=== PATIENT | female | born 1935 | race Caucasian/White ===

== ENCOUNTER → 2016-06-28 | Outpatient (CLI) | payer OTHER ==
--- NOTE | 2016-06-28 15:00 | MA ---
Screening Digital Mammogram Clinical Indications: Routine screening. Technique: Standard cephalocaudal and mediolateral oblique projections are obtained. An additional C C view is performed of each breast. This examination is processed by the [employer] computer aided detectio n system. Comparison: June 2015, May 2014, April 2013 and February 2012 Breast density: B; There are scattered fibroglandular densities. There is atherosclerotic vascular ca lcification present. A loop recorder is present in the left breast. Findings: CAD was reviewed. No suspicious findings are identified. Impression: Negative mammogram. . BI-RADS 1. Recommendation: Routine screening is recommended in one year. [facility] will send a result letter to the patient. Negative mammography should not preclude additional workup of a clinically suspicious finding. The patient's information is entered into a reminder system with a target due date for her next mammo gram.
== END ==
LOC: CIMAGING 08:06
DX: Z12.31 Encounter for screening mammogram for malignant neoplasm of breast (principal)
CPT/HCPCS: G0202

== ENCOUNTER 2016-09-15 07:43 | Emergency (ER) | payer OTHER ==
[2016-09-15 07:51] VITALS: TEMP 97.7; O2SAT 94
[2016-09-15 08:12] LABS: % IMMATURE GRANULYOCYTES 0.3 % (0.0-1.1); ABSOLUTE IMMATURE GRANULOCYTES 0.03 10^3/uL (0.00-0.10); ADD DIFF? NO; ADD MORPH? NO; ADD SCAN? NO; ATYPICAL LYMPHOCYTE FLAG 0 (0-99); FRAGMENT RBC FLAG 0 (0-99); HEMATOCRIT 46.2 % (38.0-47.0); HEMOGLOBIN 15.5 g/dL (12.6-16.3); LEFT SHIFT FLG 0 (0-99); LIPEMIA HEMOLYSIS FLAG 80 (0-99); MEAN CELL HEMOGLOBIN 30.7 pg (27.9-34.1); MEAN CELL HEMOGLOBIN CONCENTR. 33.5 g/dL (32.4-36.7); MEAN CELL VOLUME 91.5 fL (81.5-99.8); PLATELET CLUMPS FLAG 0 (0-99); PLATELET COUNT 340 10^3/uL (150-400); RED BLOOD CELL COUNT 5.05 10^6/uL (4.18-5.33); RED CELL DISTRIBUTION WIDTH 14.3 % (11.5-15.2)
[2016-09-15] MEDS ORDERED: NS 500 ML IV ONE (08:27)
--- NOTE | 2016-09-15 08:28 | EDPHY ---
H & P Stated Complaint: N/V/D abdominal pain starting last night, reports black vomit Time Seen by Provider: 09/15/16 08:10 HPI/ROS: CHIEF COMPLAINT: Vomiting and diarrhea HISTORY OF PRESENT ILLNESS: This is an 80-year-old female with history of paroxysmal atrial fibrillation who is on metoprolol for rate control and Xarelto for anticoagulation. In addition, she has a history of dementia with poor short-term memory. History was obtained primarily from the patient's . Tells me that around 6:00 p.m. yesterday (14 hours ago) she complained of lower abdominal pain. At 1:00 a.m. this morning she vomited. He describes the vomitus as dark but is not sure whether looked like coffee grounds or not. At that time she had a normal bowel movement. At 3:00 a.m. she had a bout of vomiting and diarrhea and a 2nd bout of vomiting and diarrhea at 6:30 a.m.. Today she tells me that she feels tired but otherwise fine. She denies abdominal pain at present. She is not currently feeling lightheaded but states that she often feels slightly dizzy and lightheaded. She was admitted to this hospital in March of 2016 after an episode of syncope. She has not had syncope since. She denies chest pain or shortness of breath today. She does not have any urinary symptoms. She has not recently been ill. REVIEW OF SYSTEMS: A ten point review of systems was performed and is negative with the exception of the items mentioned in the HPI. Source: Family, Old records - Personal History Current Tetanus/Diphtheria Vaccine: Yes Current Tetanus Diphtheria and Acellular Pertussis (TDAP): Yes Tetanus Vaccine Date: < 10 years - Medical/Surgical History Hx Asthma: No Hx Chronic Respiratory Disease: No Hx Diabetes: No Hx Cardiac Disease: Yes Hx Renal Disease: No Hx Cirrhosis: No Hx Alcoholism: No Hx HIV/AIDS: No Hx Splenectomy or Spleen Trauma: No Other PMH: 1. Paroxysmal atrial fibrillation on Xarelto. 2. Dementia. 3. Hypertension. 4. Dyslipidemia. 5. Chronic tension-type headache. 6. History of TIA. 7. Recurrent urinary tract infections. 8. Osteopenia. 9. Back surgery. 10. Bladder surgery in. 11. Hysterectomy - Social History Smoking Status: Never smoked Additional Social History: She lives with her of 33 years. They live in their own home. She has never used tobacco products. She drinks alcohol on rare occasions, such as holidays. She formally worked in a bank. - Physical Exam Exam: General Appearance: Alert. Vital signs reviewed. Blood pressure 147/80, heart rate 83 oxygen saturation 94% on room air. Eyes: Pupils equal and round, no conjunctival injection, no discharge. Anicteric. ENT, Mouth: Mucous membranes are dry, no oropharyngeal erythema or edema. Neck: No lymphadenopathy, supple. Respiratory: Lungs are clear to auscultation; no wheezes, rales, or rhonchi. Cardiovascular: Regular rate and rhythm; no murmur, rub, or gallop. Gastrointestinal: Mild tenderness in the right lower quadrant without guarding , no masses or organomegaly, bowel sounds normal. Rectal: Nontender. No obvious blood on the examining glove. Skin: Warm and dry, no rashes on exposed skin, normal color. Back: Nontender to palpation over the thoracolumbar spine. No CVAT. Extremities: No lower extremity edema, no calf tenderness or swelling. Neurological: Alert and oriented. Moving all four extremities easily and equally. Psychiatric: Normal affect. Constitutional: Initial Vital Signs Temperature (C) 36.5 C 09/15/16 07:48 Heart Rate 83 09/15/16 07:48 Respiratory Rate 18 09/15/16 07:48 Blood Pressure 147/80 H 09/15/16 07:48 O2 Sat (%) 94 09/15/16 07:48 O2 Delivery Mode Room Air Allergies/Adverse Reactions: atorvastatin calcium [From Lipitor] Allergy (Severe, Verified 05/17/16 18:04) Other-Enter Comments simvastatin Allergy (Severe, Verified 05/17/16 18:04) Other-Enter Comments donepezil HCl [From Aricept] Allergy (Intermediate, Verified 05/17/16 18:04) Other-Enter Comments ezetimibe [From Zetia] Allergy (Intermediate, Verified 05/17/16 18:04) Other-Enter Comments memantine HCl [From Namenda] Allergy (Intermediate, Verified 05/17/16 18:04) Other-Enter Comments pregabalin [From Lyrica] Allergy (Intermediate, Verified 05/17/16 18:04) Other-Enter Comments propranolol Allergy (Intermediate, Verified 05/17/16 18:04) Hypotension scopolamine Allergy (Intermediate, Verified 05/17/16 18:04) Other-Enter Comments amoxicillin Allergy (Mild, Verified 05/17/16 18:04) Other-Enter Comments amitriptyline Allergy (Unknown, Verified 09/15/16 07:46) Unknown cephalexin monohydrate [From Keflex] Allergy (Unknown, Verified 09/15/16 07:46) Unknown clonidine Allergy (Unknown, Verified 09/15/16 07:46) Unknown hydrochlorothiazide [From Maxzide] Allergy (Unknown, Verified 09/15/16 07:46) Unknown hydrocodone [Hydrocodone] Allergy (Unknown, Verified 09/15/16 07:46) lidocaine [From Lidoderm] Allergy (Unknown, Verified 09/15/16 07:46) Unknown naproxen Allergy (Unknown, Verified 09/15/16 07:46) nifedipine Allergy (Unknown, Verified 09/15/16 07:46) Unknown nortriptyline Allergy (Unknown, Verified 09/15/16 07:46) Unknown propoxyphene napsylate [From Darvocet-N 100] Allergy (Unknown, Verified 07:46) Sulfa (Sulfonamide Antibiotics) Allergy (Unknown, Verified 09/15/16 07:46) tramadol HCl [From Ultram] Allergy (Unknown, Verified 09/15/16 07:46) Unknown triamterene [From Maxzide] Allergy (Unknown, Verified 09/15/16 07:46) Unknown codeine Allergy (Verified 09/15/16 07:46) Home Medications: Medication Instructions Recorded Herbals/Supplements -Info Only 1 ea PO DAILY 08/16/14 Lisinopril [Zestril 30 mg] 30 mg PO DAILY 08/16/14 Multivitamins [Multivitamin (*)] 1 each PO DAILY 08/16/14 Rivaroxaban [Xarelto 15mg (*)] 15 mg PO HS 08/16/14 Vitamin B Complex [B Complex] 1 each PO DAILY 08/16/14 Acetaminophen [Tylenol ES 500 mg 500 mg PO Q6 PRN 08/17/14 (*)] Calcium Carbonate [Oyster Shell 500 mg PO DAILY 08/17/14 Calcium 500 mg (*)] Cholecalciferol Vit D3 [Vitamin D3 2,000 units PO DAILY 03/25/16 (*)] Galantamine HBr [Razadyne ER] 16 mg PO DAILY #30 cap24h.pel 03/26/16 Metoprolol Tartrate [Lopressor 25 12.5 mg PO DAILY #0 tab 03/26/16 mg (*)] Nitrofurantoin Macrobid [Macrobid 100 mg PO BID #14 cap 05/17/16 100 mg (RX)] Medical Decision Making ED Course/Re-evaluation: 80-year-old female with history of small-bowel obstruction in the past who presents with vomiting and diarrhea over the past 15 hours. She reported abdominal pain earlier but now denies abdominal pain. She has some mild pain to palpation in the right lower quadrant. She is taking Pradaxa. Laboratory studies show normal hemoglobin and hematocrit. Stool Hemoccult is negative for blood. Blood pressure and heart rate are normal. She is not in atrial fibrillation at present. She was examined 3 times while in the emergency department. She received normal saline 500 mL IV. She was able to tolerate fluids. She did not have vomiting or diarrhea while in the department. Her final two abdominal exams were without tenderness. She has not had fever. This appears to be a gastroenteritis. There is no evidence of RUQ tenderness or cholecystitis. Appendicitis was considered, but without persistent RLQ pain I think it is unlikely. I do not suspect SBO. I reviewed with her the danger signs that should prompt her to be re- evaluated. He is comfortable returning home with her. If she has return of vomiting or abdominal pain he will bring her back for another evaluation. Differential Diagnosis: Considered a differential diagnosis that includes but is not limited to gastroenteritis, GI bleeding, small-bowel obstruction, appendicitis, urinary tract infection/pyelonephritis, and cholecystitis. - Data Points Laboratory Results: Laboratory Results 09/15/16 08:05 09/15/16 08:05 09/15/16 09/15/16 09/15/16 08:28 08:05 08:05 WBC 9.67 10^3/uL H 10^3/uL (3.80-9.50) RBC 5.05 10^6/uL 10^6/uL (4.18-5.33) Hgb 15.5 g/dL g/dL (12.6-16.3) Hct 46.2 % % (38.0-47.0) MCV 91.5 fL fL (81.5-99.8) MCH 30.7 pg pg (27.9-34.1) MCHC 33.5 g/dL g/dL (32.4-36.7) RDW 14.3 % % (11.5-15.2) Plt Count 340 10^3/uL 10^3/uL (150-400) MPV 9.0 fL fL (8.7-11.7) Neut % (Auto) 88.5 % H % (39.3-74.2) Lymph % (Auto) 6.9 % L % (15.0-45.0) Young % (Auto) 3.9 % L % (4.5-13.0) Eos % (Auto) 0.0 % L % (0.6-7.6) Baso % (Auto) 0.4 % % (0.3-1.7) Nucleat RBC Rel Count 0.0 % % (0.0-0.2) Absolute Neuts (auto) 8.55 10^3/uL H 10^3/uL (1.70-6.50) Absolute Lymphs (auto) 0.67 10^3/uL L 10^3/uL (1.00-3.00) Absolute Monos (auto) 0.38 10^3/uL 10^3/uL (0.30-0.80) Absolute Eos (auto) 0.00 10^3/uL L 10^3/uL (0.03-0.40) Absolute Basos (auto) 0.04 10^3/uL 10^3/uL (0.02-0.10) Absolute Nucleated RBC 0.00 10^3/uL 10^3/uL (0-0.01) Immature Gran % 0.3 % % (0.0-1.1) Immature Gran # 0.03 10^3/uL 10^3/uL (0.00-0.10) Sodium 142 mEq/L mEq/L (134-144) Potassium 4.4 mEq/L mEq/L (3.5-5.2) Chloride 101 mEq/L mEq/L (97-110) Carbon Dioxide 28 mEq/l mEq/l (22-31) Anion Gap 13 mEq/L mEq/L (8-16) BUN 22 mg/dL mg/dL (7-23) Creatinine 1.0 mg/dL mg/dL (0.6-1.0) Estimated GFR 53 Glucose 141 mg/dL H mg/dL (70-100) Calcium 11.0 mg/dL H mg/dL (8.5-10.4) Phosphorus 4.8 mg/dL H mg/dL (2.5-4.5) Stool Occult Bld Scrn NEGATIVE (NEGATIVE) Medications Given: Discontinued Medications Sodium Chloride (Ns) 500 mls @ 0 mls/hr IV ONCE ONE PRN Reason: Wide Open Stop: 09/15/16 08:28 Last Admin: 09/15/16 08:27 Dose: 500 mls Departure - Departure Disposition: Home, Routine, Self-Care Clinical Impression: Acute gastroenteritis Condition: Good Instructions: Gastroenteritis (ED) Additional Instructions: I do not think that you have a bowel obstruction today. If you have persistent vomiting and if you have abdominal pain you should return for another evaluation. Clear liquids this morning. Referrals: Trish Rich MD [Primary Care Provider] - As per Instructions
[2016-09-15 08:29] LABS: ANION GAP 13 mEq/L (8-16); CARBON DIOXIDE 28 mEq/l (22-31); CHLORIDE 101 mEq/L (97-110); GLOMERULAR FILTRATION RATE 53; GLUCOSE 141 mg/dL (70-100); POTASSIUM 4.4 mEq/L (3.5-5.2); SODIUM 142 mEq/L (134-144)
[2016-09-15 09:56] VITALS: BP 165/73; PULSE 60; RESP 16
== END 2016-09-15 09:56 | disposition home or self-care (01) ==
DX: K52.9 Noninfective gastroenteritis and colitis, unspecified (principal); I10 Essential (primary) hypertension; Z86.73 Personal history of transient ischemic attack (TIA), and cerebral infarction without residual deficits

== ENCOUNTER → 2017-01-27 | Outpatient (CLI) | payer OTHER | LOC: FIMAGING 11-27 10:22 | PROVIDERS: ATTEND Family Medicine | DX: Z13.820 Encounter for screening for osteoporosis (principal); Z78.0 Asymptomatic menopausal state; M81.0 Age-related osteoporosis without current pathological fracture ==

== ENCOUNTER 2017-06-13 16:09 | Emergency (ER) | payer OTHER ==
--- NOTE | 2017-06-13 16:31 | CPEKG ---
Heart Rate: 61 RR Interval: 984 P-R Interval: 236 QRSD Interval: 140 QT Interval: 440 QTC Interval: 444 P [place]: 33 QRS [place]: -58 T Wave [place]: 38 EKG Severity - ABNORMAL ECG - EKG Impression: SINUS RHYTHM EKG Impression: FIRST DEGREE AV BLOCK EKG Impression: RBBB AND LAFB EKG Impression: PROBABLE LEFT VENTRICULAR HYPERTROPHY Electronically Signed By: Christopher Lemos 13-Jun-2017 18:19:24
--- NOTE | 2017-06-13 16:33 | EDPHY ---
H & P Stated Complaint: ABNORMAL EKG Time Seen by Provider: 06/13/17 16:32 HPI/ROS: CHIEF COMPLAINT: Lightheadedness in the morning HISTORY OF PRESENT ILLNESS: The patient is referred to the emergency department from her primary care provider's office. She has experienced episodic lightheadedness in the morning for the past several mornings. She is currently asymptomatic. She had an EKG performed at the office which demonstrated a right bundle branch block. They did not have a prior EKG to compare to and she was referred to the ED for further evaluation. The patient denies any acute headache, numbness, weakness and fever, dysuria, abdominal pain , history of fall or trauma. She has been compliant with her regular medications for hypertension. She recently began taking ranitidine for presumed acid reflux. REVIEW OF SYSTEMS: A comprehensive 10 point review of systems is otherwise negative aside from elements mentioned in the history of present illness. Source: Patient - Personal History Current Tetanus/Diphtheria Vaccine: Yes Current Tetanus Diphtheria and Acellular Pertussis (TDAP): Yes Tetanus Vaccine Date: < 10 years - Medical/Surgical History Hx Asthma: No Hx Chronic Respiratory Disease: No Hx Diabetes: No Hx Cardiac Disease: Yes Hx Renal Disease: No Hx Cirrhosis: No Hx Alcoholism: No Hx HIV/AIDS: No Hx Splenectomy or Spleen Trauma: No Other PMH: 1. Paroxysmal atrial fibrillation on Xarelto. 2. Dementia. 3. Hypertension. 4. Dyslipidemia. 5. Chronic tension-type headache. 6. History of TIA. 7. Recurrent urinary tract infections. 8. Osteopenia. 9. Back surgery. 10. Bladder surgery in. 11. Hysterectomy - Social History Smoking Status: Never smoked - Physical Exam Exam: General Appearance: Alert, no distress Eyes: Pupils equal and round no pallor or injection ENT, Mouth: Mucous membranes moist Respiratory: There are no retractions, lungs are clear to auscultation Cardiovascular: Regular rate and rhythm Gastrointestinal: Abdomen is soft and nontender, no masses, bowel sounds normal Neurological: A&O, normal motor function, normal sensory exam, normal cranial nerves Skin: Warm and dry, no rashes Musculoskeletal: Neck is supple nontender Extremities: symmetrical, full range of motion Constitutional: Initial Vital Signs Temperature (C) 36.5 C 06/13/17 16:14 Heart Rate 70 06/13/17 16:14 Respiratory Rate 18 06/13/17 16:14 Blood Pressure 123/84 H 06/13/17 16:14 O2 Delivery Mode Room Air Allergies/Adverse Reactions: atorvastatin calcium [From Lipitor] Allergy (Severe, Verified 05/17/16 18:04) Other-Enter Comments simvastatin Allergy (Severe, Verified 05/17/16 18:04) Other-Enter Comments donepezil HCl [From Aricept] Allergy (Intermediate, Verified 05/17/16 18:04) Other-Enter Comments ezetimibe [From Zetia] Allergy (Intermediate, Verified 05/17/16 18:04) Other-Enter Comments memantine HCl [From Namenda] Allergy (Intermediate, Verified 05/17/16 18:04) Other-Enter Comments pregabalin [From Lyrica] Allergy (Intermediate, Verified 05/17/16 18:04) Other-Enter Comments propranolol Allergy (Intermediate, Verified 05/17/16 18:04) Hypotension scopolamine Allergy (Intermediate, Verified 05/17/16 18:04) Other-Enter Comments amoxicillin Allergy (Mild, Verified 05/17/16 18:04) Other-Enter Comments amitriptyline Allergy (Unknown, Verified 06/13/17 16:11) Unknown cephalexin monohydrate [From Keflex] Allergy (Unknown, Verified 06/13/17 16:11) Unknown clonidine Allergy (Unknown, Verified 06/13/17 16:11) Unknown hydrochlorothiazide [From Maxzide] Allergy (Unknown, Verified 06/13/17 16:11) Unknown hydrocodone [Hydrocodone] Allergy (Unknown, Verified 06/13/17 16:11) lidocaine [From Lidoderm] Allergy (Unknown, Verified 06/13/17 16:11) Unknown naproxen Allergy (Unknown, Verified 06/13/17 16:11) nifedipine Allergy (Unknown, Verified 06/13/17 16:11) Unknown nortriptyline Allergy (Unknown, Verified 06/13/17 16:11) Unknown propoxyphene napsylate [From Darvocet-N 100] Allergy (Unknown, Verified 16:11) Sulfa (Sulfonamide Antibiotics) Allergy (Unknown, Verified 06/13/17 16:11) tramadol HCl [From Ultram] Allergy (Unknown, Verified 06/13/17 16:11) Unknown triamterene [From Maxzide] Allergy (Unknown, Verified 06/13/17 16:11) Unknown codeine Allergy (Verified 06/13/17 16:11) Home Medications: Medication Instructions Recorded Herbals/Supplements -Info Only 1 ea PO DAILY 08/16/14 Lisinopril [Zestril 30 mg] 30 mg PO DAILY 08/16/14 Multivitamins [Multivitamin (*)] 1 each PO DAILY 08/16/14 Rivaroxaban [Xarelto 15mg (*)] 15 mg PO HS 08/16/14 Vitamin B Complex [B Complex] 1 each PO DAILY 08/16/14 Acetaminophen [Tylenol ES 500 mg 500 mg PO Q6 PRN 08/17/14 (*)] Calcium Carbonate [Oyster Shell 500 mg PO DAILY 08/17/14 Calcium 500 mg (*)] Cholecalciferol Vit D3 [Vitamin D3 2,000 units PO DAILY 03/25/16 (*)] Galantamine HBr [Razadyne ER] 16 mg PO DAILY #30 cap24h.pel 03/26/16 Metoprolol Tartrate [Lopressor 25 12.5 mg PO DAILY #0 tab 03/26/16 mg (*)] Nitrofurantoin Macrobid [Macrobid 100 mg PO BID #14 cap 05/17/16 100 mg (RX)] Medical Decision Making - Diagnostics EKG Interpretation: EKG: Complete interpretation has been separately recorded in the [employer] archive. Summary impression: Sinus rhythm, first-degree AV block, LVH, no acute ischemic changes. Unchanged from prior EKG. ED Course/Re-evaluation: I reviewed the patient's past medical records. She presents to the ED with a bifascicular block noted on her EKG which is unchanged from her prior EKG of 2017. The patient has had very mild symptoms of orthostasis in the morning over the past 2 days. She is asymptomatic in the emergency department. The patient's CBC and chemistry panel are within normal limits. The patient received a L of normal saline. I re-evaluated the patient all times while in the emergency department she remained with a stable neurologic examination. She was noted to be hypertensive. At this point time I do feel the patient can be discharged home and follow up as needed with primary care provider. She has been advised to follow up with Cardiology for any ongoing symptoms of presyncope. She should return to the ED for the development of true syncope, chest pain or shortness of breath. Differential Diagnosis: Differential diagnosis considered includes arrhythmia, anemia, dehydration, vasovagal episode, vertigo - Data Points Laboratory Results: Laboratory Results 06/13/17 17:14 06/13/17 14:37 06/13/17 06/13/17 17:14 14:37 WBC 6.37 10^3/uL 10^3/uL (3.80-9.50) RBC 4.76 10^6/uL 10^6/uL (4.18-5.33) Hgb 14.9 g/dL g/dL (12.6-16.3) Hct 44.3 % % (38.0-47.0) MCV 93.1 fL fL (81.5-99.8) MCH 31.3 pg pg (27.9-34.1) MCHC 33.6 g/dL g/dL (32.4-36.7) RDW 14.2 % % (11.5-15.2) Plt Count 367 10^3/uL 10^3/uL (150-400) MPV 9.5 fL fL (8.7-11.7) Neut % (Auto) 61.9 % % (39.3-74.2) Lymph % (Auto) 25.7 % % (15.0-45.0) Stokes % (Auto) 9.9 % % (4.5-13.0) Eos % (Auto) 1.6 % % (0.6-7.6) Baso % (Auto) 0.6 % % (0.3-1.7) Nucleat RBC Rel Count 0.0 % % (0.0-0.2) Absolute Neuts (auto) 3.94 10^3/uL 10^3/uL (1.70-6.50) Absolute Lymphs (auto) 1.64 10^3/uL 10^3/uL (1.00-3.00) Absolute Monos (auto) 0.63 10^3/uL 10^3/uL (0.30-0.80) Absolute Eos (auto) 0.10 10^3/uL 10^3/uL (0.03-0.40) Absolute Basos (auto) 0.04 10^3/uL 10^3/uL (0.02-0.10) Absolute Nucleated RBC 0.00 10^3/uL 10^3/uL (0-0.01) Immature Gran % 0.3 % % (0.0-1.1) Immature Gran # 0.02 10^3/uL 10^3/uL (0.00-0.10) Sodium 142 mEq/L mEq/L (134-144) Potassium 4.2 mEq/L mEq/L (3.5-5.2) Chloride 106 mEq/L mEq/L (97-110) Carbon Dioxide 21 mEq/l L mEq/l (22-31) Anion Gap 15 mEq/L mEq/L (8-16) BUN 17 mg/dL mg/dL (7-23) Creatinine 0.9 mg/dL mg/dL (0.6-1.0) Estimated GFR 60 Glucose 100 mg/dL mg/dL (70-100) Calcium 10.5 mg/dL H mg/dL (8.5-10.4) Departure - Departure Disposition: Home, Routine, Self-Care Clinical Impression: Vasovagal episode Condition: Good Instructions: Syncope (DC) Additional Instructions: 1. Your EKG and laboratory testing are within normal limits. 2. Please schedule a follow-up appointment with the burrito maker you have been referred to for any ongoing symptoms. 3. Please return to the ED for markedly worsening symptoms, chest pain, shortness of breath, numbness or weakness. Referrals: Trish Rich MD [Primary Care Provider] - As per Instructions Oliver Antoine MD [Medical Doctor] - As per Instructions
[2017-06-13 17:08] VITALS: RESP 16
[2017-06-13 17:24] LABS: PLATELET COUNT 367 10^3/uL (150-400)
[2017-06-13 19:03] VITALS: BP 180/78; PULSE 65; TEMP 98.6; O2SAT 95
== END 2017-06-13 19:03 | disposition home or self-care (01) ==
DX: R55 Syncope and collapse (principal); I10 Essential (primary) hypertension; Z79.01 Long term (current) use of anticoagulants

== ENCOUNTER 2017-07-03 09:16 | Inpatient (IN) | payer OTHER ==
[2017-07-03] MEDS ORDERED: BACITRACIN IRRIGATION/NS 50,000 UNITS/1,000 ML BTL IRR ONE (09:22)
[2017-07-03] MEDS ORDERED: DIAZEPAM 5 MG TAB PO ONE (09:22)
[2017-07-03] MEDS ORDERED: diphenhydrAMINE 25 MG CAP PO ONE (09:22)
[2017-07-03] MEDS ORDERED: NS 1,000 ML IV ONE (09:22)
--- NOTE | 2017-07-03 10:01 | CPEKG ---
Heart Rate: 50 RR Interval: 1200 P-R Interval: 204 QRSD Interval: 132 QT Interval: 460 QTC Interval: 420 P [place]: 64 QRS [place]: -60 T Wave [place]: 52 EKG Severity - ABNORMAL ECG - EKG Impression: SINUS RHYTHM EKG Impression: RBBB AND LAFB Electronically Signed By: Tobin Regalado 03-Jul-2017 15:23:16
[2017-07-03 10:23] LABS: PLATELET COUNT 280 10^3/uL (150-400)
--- NOTE | 2017-07-03 10:29 | PDPROPOC ---
Sedation Plan of Care Sedation Plan of Care: vital signs stable, mental status noted, patient educated of risks, benefits, alternatives, patient can tolerate sedation ASA Classification: ASA 1 Planned drugs: fentanyl, midazolam Mallampati Score: Class 2 Mallampati Reference Image: Patient passed 3-3-2 rule?: Yes
--- NOTE | 2017-07-03 10:29 | PDHPUP ---
History & Physical Update H&P update statement: This history and physical update is based on an assessment of the patient which was completed after admission or registration (within 24 hours), but prior to the surgery/procedure. H&P update: H&P reviewed & patient examined, no change in patient's condition since H&P completed
[2017-07-03] MEDS ORDERED: MIDAZOLAM 2 MG/2 ML VIAL ONE (10:30)
[2017-07-03] MEDS ORDERED: fentaNYL 100 MCG/2 ML INJ ONE ×2 (10:30→11:55)
[2017-07-03] MEDS ORDERED: BUPIVACAINE 0.5% 30 ML SDV ONE ×2 (10:30→11:12)
[2017-07-03] MEDS ORDERED: IOPAMIDOL (ISOVUE-300) 100 ML BTL ONE (10:31)
[2017-07-03 10:43] LABS: INR 0.96 (0.83-1.16)
[2017-07-03] MEDS ORDERED: ceFAZolin 2 GM/SWFI 2 GM/20 ML SYR IVP ONE (11:00)
[2017-07-03] MEDS ORDERED: hydrALAZINE 20 MG/ML VIAL ONE (12:46)
--- NOTE | 2017-07-03 13:55 | CPEKG ---
Heart Rate: 48 RR Interval: 1250 P-R Interval: 212 QRSD Interval: 120 QT Interval: 432 QTC Interval: 386 P [place]: 62 QRS [place]: -83 T Wave [place]: 66 EKG Severity - ABNORMAL ECG - EKG Impression: SINUS BRADYCARDIA EKG Impression: INCOMPLETE RBBB AND LAFB Electronically Signed By: Tobin Regalado 03-Jul-2017 15:22:59
--- NOTE | 2017-07-03 14:42 | SUROPNOTE ---
[facility] Operative Report - Surgery PROCEDURE: (1) PPM IMPLANT (2) LEFT SUBCLAVIAN VENOGRAM (3) LINQ EXPLANT INDICATION: (1) SEVEN SECOND PAUSE ON LINQ MONITOR PROCEDURE DETAILS: Patient was consented for both the explant of the LINQ and the implant of the PPM with 's signature given the degree of dementia. Patient was brought to the cardiac operations label clerk and prepped/draped in the usual sterile fashion for the first procedure (LINQ explant). This procedure was performed without difficulty or issues, and scrub was broken. The left subclavian venogram was performed with a large vessel identified. The patient was prepped and scrubbed a second time with surgical drape to the left subclavian regioni. One stick was performed with mild difficulty given the patient's body habitus and moderate movement. A pocket was then created, and the wire from access was pulled into the pocket. A raytech soaked in bacitracin was placed in the pocket, and the ventricular lead was placed Ventricular lead serial number: [id number] capture at 0.6V @ 0.4 ms, 0.8 mA. Sensing at 8.2 mV, 1.5 V/s, and impedance of 572 ohms This lead was sutured into position. Raytech was explanted and pacer was implanted, and sutured into position Model number: [id number] with serial number: [id number] No complications were appreciated. Chest x-ray is pending post procedure and tomorrow morning with interrogation also pending at that time.
[2017-07-03] MEDS ORDERED: ONDANSETRON 4 MG/2 ML VIAL ONE (14:51)
[2017-07-03] MEDS: ACETAMINOPHEN 500 MG TAB PO PRN ×2 (16:24→21:38)
[2017-07-03] MEDS: GALANTAMINE HBR 12 MG PO SCH (18:22)
[2017-07-03] MEDS: FAMOTIDINE 20 MG TAB PO SCH (20:20)
[2017-07-03] MEDS ORDERED: RIVAROXABAN 15 MG TAB PO SCH (21:00)
[2017-07-04 04:04] LABS: PLATELET COUNT 252 10^3/uL (150-400)
[2017-07-04] MEDS: GALANTAMINE HBR 12 MG PO SCH (08:48)
[2017-07-04] MEDS ORDERED: METOPROLOL TARTRATE 25 MG TAB PO SCH (09:00)
[2017-07-04] MEDS ORDERED: Herbals/Supplements -Info Only PO SCH (09:00)
--- NOTE | 2017-07-04 09:09 | CPEKG ---
Heart Rate: 66 RR Interval: 909 P-R Interval: 211 QRSD Interval: 136 QT Interval: 428 QTC Interval: 449 P [place]: 0 QRS [place]: -106 T Wave [place]: 57 EKG Severity - ABNORMAL ECG - EKG Impression: SINUS RHYTHM EKG Impression: RIGHT BUNDLE BRANCH BLOCK Electronically Signed By: Tobin Regalado 04-Jul-2017 12:37:25
--- NOTE | 2017-07-04 09:56 | ASMTCASEMG ---
Living Arrangements What is your living Answers: With Spouse arrangement? Who do you live with? Type Of Residence What kind of residence do Answers: House you live in? Discharge Plan Comments Coordination Status Comments Notes: CM spoke w/ [facility] regarding d/c POC. Pt is a 81 y/o female admitted for pauses. Pt will most likely d/c independent when medically stable w/ supportive . OT has been ordered. CM available for d/c needs. Plan: Independent Date Signed: 07/04/2017 09:55 AM Electronically Signed By:FAWN Hopkins
--- NOTE | 2017-07-04 10:29 | PDCONSULT ---
[employer] Supervisor Note: 81 y/o female s/p pacer placement yesterday. CXR today shows left hydropneumothorax and surgical consultation was requested by Libby Roldan PA-C Patient is in NAD, though requiring supplemental O2. She received Xarelto 15mg last PM PMH: reviewed Dr. Miller' office note A-fib, TIA allergies: numerous including cephalexin, sulfa non-smoker SH: here with /six children FH: non-contributory ROS: denies chest pain/mild dyspnea PE: T36.6 BP 163/77 HR 74 O2sat 94% 3 lpm slender female in NAD HEENT: no JVD, trachea midline Lungs: diminished left CVS: IRR/pacer left subclavian approach Abd: soft/non-tender CXR: 30% left pneumothorax/pleural effusion Imp: left hydropneumothorax Afib anticoagulation Rec: left closed tube thoracostomy we discussed the procedure and risks-particulary the risk of bleeding while taking Xarelto informed consent was obtained Cornel Tariq MD, FACS
[2017-07-04] MEDS ORDERED: LR 1,000 ML IV ONE (10:46)
[2017-07-04] MEDS ORDERED: LIDOCAINE 1% 300 MG/30 ML SDV ONE (11:05)
[2017-07-04] MEDS ORDERED: BACITRACIN ZINC 14.2 GM OINTTUBE TP ONE (11:05)
[2017-07-04] MEDS ORDERED: BUPIVACAINE 0.5% 30 ML SDV ONE (11:06)
[2017-07-04] MEDS ORDERED: CLINDAMYCIN 900 MG/DEXTROSE 50 ML IV ONE (11:07)
[2017-07-04] MEDS ORDERED: MIDAZOLAM 2 MG/2 ML VIAL IVP ONE (11:15)
--- NOTE | 2017-07-04 11:17 | PDANEPAE ---
ANE History of Present Illness 81 yo for chest tube ANE Past Medical History - Cardiovascular History Hx Hypertension: Yes Hx Arrhythmias: Yes - Pulmonary History Hx Oxygen in Use at Home: No Hx Sleep Apnea: No Sleep Apnea Screening Result - Last Documented: Negative - Endocrine History Hx Diabetes: No - Chronic Pain History Chronic Pain: Yes ANE Review of Systems Review of Systems: - Exercise capacity METS (RN): 3 METS - Pacemaker Pacemaker [employer]: [employer] [place] ANE Patient History - Allergies Allergies/Adverse Reactions: atorvastatin calcium [From Lipitor] Allergy (Severe, Verified 07/04/17 10:52) Other-Enter Comments simvastatin Allergy (Severe, Verified 07/04/17 10:52) Other-Enter Comments donepezil HCl [From Aricept] Allergy (Intermediate, Verified 07/04/17 10:52) Other-Enter Comments ezetimibe [From Zetia] Allergy (Intermediate, Verified 07/04/17 10:52) Other-Enter Comments memantine HCl [From Namenda] Allergy (Intermediate, Verified 07/04/17 10:52) Other-Enter Comments pregabalin [From Lyrica] Allergy (Intermediate, Verified 07/04/17 10:52) Other-Enter Comments propranolol Allergy (Intermediate, Verified 07/04/17 10:52) Hypotension scopolamine Allergy (Intermediate, Verified 07/04/17 10:52) Other-Enter Comments amoxicillin Allergy (Mild, Verified 07/04/17 10:52) Other-Enter Comments amitriptyline Allergy (Unknown, Verified 07/04/17 10:52) Unknown cephalexin monohydrate [From Keflex] Allergy (Unknown, Verified 07/04/17 10:52) Unknown clonidine Allergy (Unknown, Verified 07/04/17 10:52) Unknown hydrochlorothiazide [From Maxzide] Allergy (Unknown, Verified 07/04/17 10:52) Unknown hydrocodone [Hydrocodone] Allergy (Unknown, Verified 07/04/17 10:52) lidocaine [From Lidoderm] Allergy (Unknown, Verified 07/04/17 10:52) Unknown naproxen Allergy (Unknown, Verified 07/04/17 10:52) nifedipine Allergy (Unknown, Verified 07/04/17 10:52) Unknown nortriptyline Allergy (Unknown, Verified 07/04/17 10:52) Unknown propoxyphene napsylate [From Darvocet-N 100] Allergy (Unknown, Verified 10:52) Sulfa (Sulfonamide Antibiotics) Allergy (Unknown, Verified 07/04/17 10:52) tramadol HCl [From Ultram] Allergy (Unknown, Verified 07/04/17 10:52) Unknown triamterene [From Maxzide] Allergy (Unknown, Verified 07/04/17 10:52) Unknown codeine Allergy (Verified 07/04/17 10:52) - Home Medications Home Medications: Herbals/Supplements -Info Only 1 ea PO DAILY 08/16/14 [Last Taken 03/24/16] Lisinopril [Zestril 30 mg] 30 mg PO DAILY 08/16/14 [Last Taken 03/24/16] Multivitamins [Multivitamin (*)] 1 each PO DAILY 08/16/14 [Last Taken 03/24/16] Rivaroxaban [Xarelto 15mg (*)] 15 mg PO HS 08/16/14 [Last Taken 03/24/16] Vitamin B Complex [B Complex] 1 each PO DAILY 08/16/14 [Last Taken 03/24/16] Acetaminophen [Tylenol ES 500 mg (*)] 500 mg PO Q6 PRN 08/17/14 [Last Taken 09/05] Cholecalciferol Vit D3 [Vitamin D3 (*)] 2,000 units PO DAILY 03/25/16 [Last Taken 03/24/16] Ascorbic Acid [Vitamin C 500 mg (*)] 500 mg PO DAILY 07/01/17 [Last Taken Unknown] Metoprolol Tartrate [Lopressor 25 mg (*)] 25 mg PO DAILY 07/01/17 [Last Taken Unknown] Ranitidine HCl [Zantac] 150 mg PO BID 07/01/17 [Last Taken Unknown] Galantamine HBr [Galantamine ER] 16 mg PO DAILY 07/04/17 [Last Taken Unknown] - NPO status NPO Since - Liquids (Date): 07/04/17 NPO Since - Liquids (Time): 08:00 NPO Since - Solids (Date): 07/04/17 NPO Since - Solids (Time): 00:00 - Smoking Hx Smoking Status: Never smoked ANE Labs/Vital Signs - Labs Result Diagrams: 07/04/17 03:48 01/12/18 03:48 - Vital Signs Blood Pressure: 148/78 Heart Rate: 68 Respiratory Rate: 14 O2 Sat (%): 93 Height: 5 ft 4 in Weight: 49.895 kg ANE Physical Exam - Airway Mallampati Score: Class 2 Mouth exam: normal dental/mouth exam - Pulmonary Pulmonary: no respiratory distress - Cardiovascular Cardiovascular: regular rate and rhythym - ASA Status ASA Status: III ANE Anesthesia Plan Anesthesia Plan: MAC
[2017-07-04] MEDS ORDERED: PROPOFOL/EMULSION 500 MG/50 ML BOTTLE IV ONE (11:23)
[2017-07-04] MEDS ORDERED: fentaNYL 100 MCG/2 ML INJ ONE ×2 (11:37→12:20)
[2017-07-04] MEDS ORDERED: NALOXONE HCL 0.4 MG/ML INJ IVP PRN (11:48)
[2017-07-04] MEDS ORDERED: fentaNYL 100 MCG/2 ML INJ IVP PRN (11:48)
[2017-07-04] MEDS ORDERED: ONDANSETRON 4 MG/2 ML VIAL IVP PRN ×2 (11:48→18:08)
--- NOTE | 2017-07-04 12:07 | POSTANESTH ---
Post Anesthetic Evaluation Cardiovascular Status: Normal, Stable Respiratory Status: Similar to Pre-op Cond. Level of Consciousness/Mental Status: Can Participate in Eval Pain Control: Adequate, Prn Tx Ordered Nausea/Vomiting Control: Adequate, Prn Tx Ordered Complications Possibly Related to Anesthesia: None Noted
--- NOTE | 2017-07-04 12:25 | POSTOPPROG ---
Post Op Note Date of Operation: 07/04/17 Surgeon: Marcus Tariq (, FACS) Anesthesiologist: Boogie Grubbs MD Anesthesia: Other (Specify) (MAC) Pre-op Diagnosis: left pneumothorax Procedure: left closed tube thoracostomy Inf/Abcess present in the surg proc area at time of surgery?: No EBL: Minimal Drains: Other (chest tube)
[2017-07-04] MEDS ORDERED: ONDANSETRON 4 MG/2 ML VIAL ONE (13:29)
[2017-07-04] MEDS: LISINOPRIL 20 MG TAB PO SCH (14:45)
[2017-07-04] MEDS: ACETAMINOPHEN 500 MG TAB PO PRN ×2 (14:45→20:28)
[2017-07-04] MEDS: CHOLECALCIFEROL VIT D3 1,000 UNITS TAB PO SCH (14:45)
[2017-07-04] MEDS: MULTIVITAMINS 1 EACH TAB PO SCH (14:47)
[2017-07-04] MEDS: FAMOTIDINE 20 MG TAB PO SCH ×2 (14:49→20:29)
[2017-07-04] MEDS: ASCORBIC ACID 500 MG TAB PO SCH (14:51)
[2017-07-04] MEDS: VITAMIN B COMPLEX 1 EA CAP/TAB PO SCH (14:51)
[2017-07-04] MEDS: GALANTAMINE HBR 16 MG PO SCH (14:55)
--- NOTE | 2017-07-04 15:39 | PDCARPN ---
Cardiology Progress Note Chief Complaint: SSS s/p c/b ptx Assessment/Plan: Assessment: 81F PMH htn, mild carotid disease, previous TIA, PAF, dyslipidemia presented for pacer placement due to 7-second pause seen on Linq monitoring. Pacer insertion c/b ptx. #. ptx: s/p chest tube with Dr. Tariq #. ppm: device functioning appropriately #. htn: BP not well controlled will increase Metoprolol now #. back pain: h/o multiple back surgeries intolerant of multiple analgesics add K pad #. PAF: currently in SR holding Xarelto in setting of recent chest tube await Dr. Tariq' input on timing of restarting this #. DVT ppx: defer Enox #. LOS: >48 hours due to need for chest tube 07/04/17 15:31 Subjective: Comfortable unless she takes a deep breath. Having back pain. Reviewed/Discussed With: other (Dr. Tariq) Objective: Vital Signs (8 Hrs) Temp Pulse Resp BP Pulse Ox 07/04/17 14:28 98.3 F 66 18 170/85 H 95 07/04/17 13:04 97.9 F 07/04/17 12:00 97.7 F 07/04/17 11:17 68 14 148/78 H 93 07/04/17 10:48 98.8 F 68 14 148/78 H 93 07/04/17 10:21 97.9 F 74 18 163/77 H 3 L 07/04/17 07:47 97.8 F 74 18 163/77 H 94 Intake/Output (24 Hrs) 07/03/17 07/04/17 07/05/17 05:59 05:59 05:59 Intake Total 1560 450 Output Total 10 Balance 1560 440 Intake: Oral (ml) 960 100 IV Intake (ml) 600 350 Output: Chest Tube Output (ml) 10 24 Fr Left 10 Estimated Blood Loss (ml) 0 Other: Weight 49.895 kg 49.895 kg Number of Voids Toilet 3 Result Diagrams: 07/04/17 03:48 07/04/17 03:48 Telemetry: SR - Physical Exam Constitutional: no apparent distress Ears, Nose, Mouth, Throat: moist mucous membranes Cardiovascular: regular rate and rhythm Respiratory: reduced air movement Gastrointestinal: normoactive bowel sounds Skin: no rashes, no abrasions Musculoskeletal: no muscular tenderness Psychiatric: cooperative, interactive ICD10 Worksheet Patient Problems: Problems Problem Status Onset SBO (small bowel obstruction) Acute Cystitis Acute Syncope Acute
[2017-07-04] MEDS ORDERED: METOPROLOL TARTRATE 25 MG TAB PO ONE (18:00)
--- NOTE | 2017-07-04 19:54 | GOP ---
[f rep st] OPERATIVE REPORT DATE OF OPERATION: 07/04/2017 SURGEON: Marcus Tariq MD, FACS ANESTHESIA: Monitored anesthesia care. ANESTHESIOLOGIST: Greer Wasihngton MD. PREOPERATIVE DIAGNOSIS: Left hydropneumothorax. POSTOPERATIVE DIAGNOSIS: Left hydropneumothorax. PROCEDURE PERFORMED: Placement of left closed tube thoracostomy. FINDINGS: ESTIMATED BLOOD LOSS: Negligible. INDICATIONS: Patient is an 81-year-old female, who is approximately 16 hours status post placement of a left subclavian single-lumen pacemaker lead and generator. Postoperative chest x-ray appeared unremarkable. Repeat chest x- ray this morning showed a left hydropneumothorax, approximately 30%. Patient had mild respiratory compromise and was on Xarelto (anti Xa inhibitor), and had a history of mild dementia. I elected to bring the patient to the operating room for monitored anesthesia care to provide a safe environment for this procedure. DESCRIPTION OF PROCEDURE: Left chest was prepped and draped in usual fashion. Patient received moderate sedation, but did not require assisted ventilation. Before proceeding, a time-out and identification were performed. A sterile environment was created with appropriate draping. 1% lidocaine and 0.25% Marcaine were used to establish an intercostal block between the 4th and 5th intercostal segments. A small incision was made, and the chest was entered bluntly with a Pean clamp, and a buckley of air returned. A 24-[place] chest tube was introduced and advanced towards the apex without resistance. This was secured to the skin with interrupted 2-0 nylon suture. The chest tube was placed to Pleur-Evac suction. No air leak was noted. Sterile dressings were applied, and the patient was returned to the recovery room in satisfactory condition. Needle, sponge, and instrument count were correct. COMPLICATIONS: None. /[id number]/MODL MTDD
[2017-07-04] MEDS: METOPROLOL TARTRATE 25 MG TAB PO SCH (20:29)
[2017-07-05] MEDS: ACETAMINOPHEN 500 MG TAB PO PRN ×3 (01:54→18:19)
[2017-07-05] MEDS: GALANTAMINE HBR 16 MG PO SCH (09:41)
[2017-07-05] MEDS: MULTIVITAMINS 1 EACH TAB PO SCH (09:43)
[2017-07-05] MEDS: FAMOTIDINE 20 MG TAB PO SCH ×2 (09:43→20:28)
[2017-07-05] MEDS: VITAMIN B COMPLEX 1 EA CAP/TAB PO SCH (09:44)
[2017-07-05] MEDS: CHOLECALCIFEROL VIT D3 1,000 UNITS TAB PO SCH (09:44)
[2017-07-05] MEDS: ASCORBIC ACID 500 MG TAB PO SCH (09:44)
[2017-07-05] MEDS: METOPROLOL TARTRATE 25 MG TAB PO SCH ×2 (09:45→20:28)
[2017-07-05] MEDS: LISINOPRIL 20 MG TAB PO SCH (09:48)
[2017-07-05] MEDS ORDERED: LISINOPRIL 10 MG TAB PO ONE (10:00)
--- NOTE | 2017-07-05 11:10 | PDCARPN ---
Cardiology Progress Note Chief Complaint: Patient reports left-sided pain with deep breath, and with significant movement Assessment/Plan: Assessment: 81-year-old female with past history that includes severe dementia, hypertension , mild carotid artery disease, previous TIA , paroxysmal atrial fibrillation, dyslipidemia. Recently found to have 7 second pauses by Linq monitor. Underwent PPM implantation (Biotronik single RV lead VVI) and loop recorder explant by Dr. Miller on 07/03/2017. Device check on 07/04/2017 showing functioning within normal limits. Chest x-ray done on 07/04/2017 showed moderate size , left pneumothorax. Dr. Tariq (surgery) to patient to OR later that afternoon and placed left-sided chest tube for lung reexpansion. Today, patient remains at her normal mentation baseline. Reports no shortness of breath. Does reports some mild pain with movement at chest tube insertion site. Pacer and Linq removal sites without redness, swelling, or drainage. Patient's blood pressure noted to be elevated, with systolics up to 176 last evening. Patient's chest tube drainage is 230 mL. Repeated chest x-ray today showing improvement with left lower lobe atelectasis, tiny left apical pneumothorax but stable. Patient maintaining SpO2 greater 90% , in no acute respiratory distress. Telemetry monitoring noticing patient has maintained sinus rhythm with occasional ventricular paced beats. Lungs are diminished in bases left greater than right. Plan: 1. Sinus arrest: Previous Linq monitor showing 7 second pauses. Status post ppm, recent device check shows functioning within normal limits. Once discharge , patient has device check and wound check set up later this week. 2. Pneumothorax: Found status post ppm implantation. Chest tube in place, chest x-ray today showing improvement. Defer to Dr. Tariq. Repeat CBC in a.m.. Repeat chest x-ray in am. IS. 3. Paroxysmal atrial fibrillation: None noted overnight. Patient resumed on metoprolol. Xarelto on hold until cleared by surgery to restart. 4. Hypertension: Restarted on metoprolol yesterday and continued on home dose lisinopril. Elevated last evening. Will increase lisinopril to 40 mg p.o. q.day. Repeat BMP in a.m. 5. Dementia: Per patient at baseline. 6. DVT prophylaxis: Anticoagulation held due to recent chest tube placement and ppm implantation. Ordered Jacinto sandoval, and SCDs while in bed. Patient will plan to be in hospital for greater than 48 hours. 07/05/17 11:06 Subjective: Patient reports no orthopnea, shortness of breath, lightheadedness, chest pressure or symptoms suggesting of ischemia, lightheadedness. Reviewed/Discussed With: family (), other (Dr. Ji) Objective: Vital Signs (8 Hrs) Temp Pulse Resp BP Pulse Ox 07/05/17 09:48 154/64 H 07/05/17 09:45 58 L 154/64 H 07/05/17 07:48 36.9 C 66 14 148/61 H 92 07/05/17 06:19 44 L 15 94 07/05/17 05:28 37.1 C 56 L 16 146/75 H 90 L 07/05/17 04:00 45 L 16 94 Intake/Output (24 Hrs) 07/04/17 07/05/17 07/06/17 05:59 05:59 05:59 Intake Total 1560 950 Output Total 230 Balance 1560 720 Intake: Oral (ml) 960 600 IV Intake (ml) 600 350 Output: Chest Tube Output (ml) 230 24 Fr Left 230 Estimated Blood Loss (ml) 0 Other: Weight 49.895 kg 49.895 kg Number of Voids Toilet 3 1 Number of Emesis 1 Occurrences Result Diagrams: 07/04/17 03:48 07/04/17 03:48 - Physical Exam Constitutional: no apparent distress, other (Elderly female) Ears, Nose, Mouth, Throat: dry mucous membranes Cardiovascular: regular rate and rhythm, no murmurs, pulses symmetric bilat, No jugular vein distention, No carotid bruit Peripheral Pulses: 1+: dorsalis-pedis (R), dorsalis-pedis (L), 2+: carotid (R), carotid (L) Respiratory: other (Lungs diminished in bases, left greater than right, rhonchi noted which clears with cough.) Gastrointestinal: normoactive bowel sounds Skin: no rashes, no edema, other (Pacemaker and Linq removal incisions with no redness, swelling, or drainage. No ecchymosis, no hematoma. Left lateral chest tube insertion site without redness, swelling, or drainage. Chest tube to Pleur-Evac at 10 cm of water VAC) Neurologic: other (Patient is awake alert to people, but not to time and place. Per at normal baseline.) Psychiatric: cooperative, following commands ICD10 Worksheet Patient Problems: Problems Problem Status Onset SBO (small bowel obstruction) Acute Cystitis Acute Syncope Acute
[2017-07-05] MEDS ORDERED: hydrALAZINE 25 MG TAB PO PRN (17:51)
[2017-07-05] MEDS ORDERED: hydrALAZINE 25 MG TAB PO ONE (18:00)
[2017-07-06] MEDS: ACETAMINOPHEN 500 MG TAB PO PRN ×3 (04:00→16:01)
[2017-07-06] MEDS: MULTIVITAMINS 1 EACH TAB PO SCH (08:23)
[2017-07-06] MEDS: VITAMIN B COMPLEX 1 EA CAP/TAB PO SCH (08:23)
[2017-07-06] MEDS: FAMOTIDINE 20 MG TAB PO SCH ×2 (08:23→21:30)
[2017-07-06] MEDS: CHOLECALCIFEROL VIT D3 1,000 UNITS TAB PO SCH (08:25)
[2017-07-06] MEDS: ASCORBIC ACID 500 MG TAB PO SCH (08:25)
[2017-07-06] MEDS: LISINOPRIL 40 MG TAB PO SCH (08:26)
[2017-07-06] MEDS: METOPROLOL TARTRATE 25 MG TAB PO SCH ×2 (08:30→21:29)
[2017-07-06] MEDS: GALANTAMINE HBR 16 MG PO SCH (08:31)
--- NOTE | 2017-07-06 14:03 | PDCARPN ---
Cardiology Progress Note Assessment/Plan: Assessment: 81-year-old female with past history that includes severe dementia, hypertension , mild carotid artery disease, previous TIA , paroxysmal atrial fibrillation, dyslipidemia. Recently found to have 7 second pauses by Linq monitor. Underwent PPM implantation (Biotronik single RV lead VVI) and loop recorder explant by Dr. Miller on 07/03/2017. Device check on 07/04/2017 showing functioning within normal limits. Chest x-ray done on 07/04/2017 showed moderate size , left pneumothorax. Dr. Tariq (surgery) to patient to OR later that afternoon and placed left-sided chest tube for lung reexpansion. Today, patient remains at her normal mentation baseline. Reports no shortness of breath. Does reports some mild pain with movement at chest tube insertion site. Pacer and Linq removal sites without redness, swelling, or drainage. Patient's blood pressure noted to be elevated, with systolics up to 176 last evening. Patient's chest tube drainage is 230 mL. Repeated chest x-ray today showing improvement with left lower lobe atelectasis, tiny left apical pneumothorax but stable. Patient maintaining SpO2 greater 90% , in no acute respiratory distress. Telemetry monitoring noticing patient has maintained sinus rhythm with occasional ventricular paced beats. Lungs are diminished in bases left greater than right. Plan: 1. Sinus arrest: Previous Linq monitor showing 7 second pauses. Status post VVIR ppm, recent device check shows functioning within normal limits. Once discharge, patient has device check and wound check set up later this week. 2. Pneumothorax: Found status post ppm implantation. Chest tube in place, chest x-ray today showing improvement. Defer to Dr. Tariq AND SURGERY TEAM 3. Paroxysmal atrial fibrillation: None noted overnight. Patient resumed on metoprolol. Xarelto on hold until cleared by surgery to restart. 4. Hypertension: Restarted on metoprolol yesterday and continued on home dose lisinopril. Elevated last evening. Will increase lisinopril to 40 mg p.o. q.day. Repeat BMP in a.m. 5. Dementia: Per patient at baseline. 6. DVT prophylaxis: Anticoagulation held due to recent chest tube placement and ppm implantation. Ordered Jacinto hose, and SCDs while in bed. Patient will plan to be in hospital for greater than 48 hours. Plan: ABOVE 07/06/17 13:59 Reviewed/Discussed With: other (NURSE) Time Spent With Patient: 15 MINUTES Objective: Vital Signs (8 Hrs) Temp Pulse Resp BP Pulse Ox 07/06/17 11:46 37.1 C 57 L 14 142/79 H 93 07/06/17 10:02 127/64 H 07/06/17 07:23 36.9 C 71 15 136/83 H 91 L Intake/Output (24 Hrs) 07/05/17 07/06/17 07/07/17 05:59 05:59 05:59 Intake Total 950 420 Output Total 230 Balance 720 420 Intake: Oral (ml) 600 420 IV Intake (ml) 350 Output: Chest Tube Output (ml) 230 24 Fr Left 230 Estimated Blood Loss (ml) 0 Other: Weight 49.895 kg Intake Quantity Yes Sufficient Number of Voids Toilet 1 4 Number of Stools Toilet 1 Number of Emesis 1 Occurrences Result Diagrams: 07/06/17 04:25 07/06/17 04:25 - Physical Exam Constitutional: no apparent distress, other (POOR MEMORY ) Eyes: PERRL, anicteric sclera Ears, Nose, Mouth, Throat: moist mucous membranes Cardiovascular: regular rate and rhythm, systolic murmur Respiratory: clear to auscultate bilat, other (LEFT SIDED CHEST TUBE) Gastrointestinal: normoactive bowel sounds, no tenderness Neurologic: other (VERY POOR RECALL) Psychiatric: cooperative, following commands ICD10 Worksheet Patient Problems: Problems Problem Status Onset Cystitis Acute SBO (small bowel obstruction) Acute Syncope Acute
[2017-07-07] MEDS: ACETAMINOPHEN 500 MG TAB PO PRN ×2 (03:33→09:55)
[2017-07-07] MEDS: MULTIVITAMINS 1 EACH TAB PO SCH (09:12)
[2017-07-07] MEDS: FAMOTIDINE 20 MG TAB PO SCH ×2 (09:13→20:01)
[2017-07-07] MEDS: METOPROLOL TARTRATE 25 MG TAB PO SCH (09:13)
[2017-07-07] MEDS: VITAMIN B COMPLEX 1 EA CAP/TAB PO SCH (09:13)
[2017-07-07] MEDS: CHOLECALCIFEROL VIT D3 1,000 UNITS TAB PO SCH (09:13)
[2017-07-07] MEDS: ASCORBIC ACID 500 MG TAB PO SCH (09:13)
[2017-07-07] MEDS: LISINOPRIL 40 MG TAB PO SCH (09:13)
[2017-07-07] MEDS: GALANTAMINE HBR 16 MG PO SCH (09:16)
--- NOTE | 2017-07-07 11:23 | PDCARPN ---
Cardiology Progress Note Chief Complaint: Patient reporting pain at left lateral side, at chest tube insertion site, with any movement Assessment/Plan: Assessment: 81-year-old female with past history that includes severe dementia, hypertension , mild carotid artery disease, previous TIA , paroxysmal atrial fibrillation, dyslipidemia. Recently found to have 7 second pauses by Linq monitor. Underwent PPM implantation (Biotronik single RV lead VVI) and loop recorder explant by Dr. Miller on 07/03/2017. Device check on 07/04/2017 showing functioning within normal limits. Chest x-ray done on 07/04/2017 showed moderate size , left pneumothorax. Dr. Tariq (surgery) to patient to OR later that afternoon and placed left-sided chest tube for lung reexpansion. Today, patient's blood pressure remains elevated, we have recently increased her lisinopril to 40 mg q.day comma without much change. She has also been recently started on metoprolol. She reporting pain at chest tube site. No significant output per nursing services. Chest x-ray continues to show tiny left apical pneumothorax, stable left basilar opacity possibly related to atelectasis. No other acute cardiopulmonary process at this time. She denies of any shortness of breath. SpO2 greater than 90%. Continues manager cardiac shows she remained sinus rhythm, no significant pauses noted. Occasional ventricular paced beat. No other malignant arrhythmias. Plan: 1. Sinus arrest: Previous Linq monitor showing 7 second pauses. Status post ppm, device check done postop day 1 showing functioning within normal limits.. Once discharge, patient has device check and wound check set up later this week. 2. Pneumothorax: Found status post ppm implantation. Chest tube placed by Dr. Tariq on July 04. Spoke to Dr. Kramer today, rule evaluate patient comma and decide on further care, if necessary to continue chest tube. Encouraged incentive spirometer 3. Paroxysmal atrial fibrillation: None noted overnight. Changing patient over to carvedilol due to hypertension comma Xarelto on hold until cleared by surgery to restart. 4. Hypertension: BP remains inadequately controlled at this time, questioning maybe some pain may be compounding this. Continue on current dose of lisinopril. Changing beta-lisbet over to carvedilol at 6.52 mg p. o. twice daily, for hopefully better control. 5. Dementia: Per patient at baseline. 6. DVT prophylaxis: Anticoagulation held due to recent chest tube placement and ppm implantation. Ordered Jacinto hose, and SCDs while in bed. 07/07/17 11:15 Subjective: Patient denies of any chest pressure or pains that suggest cardiac ischemia. Denies of any shortness of breath. Reports no palpitations, lightheadedness, orthopnea, near-syncope or syncopal events. Reviewed/Discussed With: family (Patient ), other (Dr Kramer, Dr Dawn) Objective: Vital Signs (8 Hrs) Temp Pulse Resp BP Pulse Ox 07/07/17 08:47 36.9 C 67 18 154/81 H 93 07/07/17 03:27 37 C 68 16 168/81 H 93 Intake/Output (24 Hrs) 07/06/17 07/07/17 07/08/17 05:59 05:59 05:59 Intake Total 420 0 236 Balance 420 0 236 Intake: Oral (ml) 420 0 236 Other: Intake Quantity Yes Sufficient Number of Voids Toilet 4 1 Number of Stools Toilet 1 Result Diagrams: 07/06/17 04:25 07/06/17 04:25 - Physical Exam Constitutional: healthy appearing, no apparent distress Ears, Nose, Mouth, Throat: moist mucous membranes Cardiovascular: regular rate and rhythm, no murmurs, no rubs, pulses symmetric bilat, No jugular vein distention, No carotid bruit Peripheral Pulses: 1+: dorsalis-pedis (R), dorsalis-pedis (L), 2+: carotid (R), carotid (L) Respiratory: other (Lungs are clear but diminished in bases bilateral. No rhonchi, rales, or wheezing noted. No accessary muscle use noted.) Gastrointestinal: normoactive bowel sounds Skin: warm, no edema, other (Ppm and LINQ explant incision sites dressings are clean dry and intact. No signs of infection. Chest 2 left lateral, dressing clean dry tach. Chest tube to Pleur-Evac via wall suction.) Neurologic: other (Patient is alert to others, but not of time or place. Does reorder intake easily. Per this is her baseline mentation.) Psychiatric: cooperative, interactive, following commands, not anxious ICD10 Worksheet Patient Problems: Problems Problem Status Onset Cystitis Acute SBO (small bowel obstruction) Acute Syncope Acute
[2017-07-07] MEDS ORDERED: POLYETHYLENE GLYCOL 3350 17 GM PKT PO PRN (19:37)
[2017-07-07] MEDS ORDERED: LACTULOSE 20 GM/30 ML UDCUP PO PRN (19:37)
[2017-07-07] MEDS ORDERED: MAGNESIUM HYDROXIDE 30 ML UDCUP PO PRN (19:37)
[2017-07-07] MEDS ORDERED: BISACODYL 10 MG SUPP PR PRN (19:37)
[2017-07-07] MEDS: CARVEDILOL 6.25 MG TAB PO SCH (20:02)
[2017-07-07] MEDS: SENNOSIDES/DOCUSATE SODIUM TAB PO SCH (20:04)
--- NOTE | 2017-07-07 20:14 | SOAPPROG ---
SOAP Progress Note Assessment/Plan: Assessment: 81-year-old female seen today in follow-up after pneumothorax from pacemaker insertion Chest tube reveals no air leak and minimal serous drainage Chest x-ray shows near full expansion of the left chest HEENT negative for any signs of trauma Chest clear and symmetric Cor regular rhythm Abdomen soft and nontender Vital signs stable/afebrile Plan: DC chest tube with follow-up chest x-ray tonight and in a.m. and probably home tomorrow 07/07/17 20:13 Objective: Vital Signs Temp Pulse Resp BP Pulse Ox 36.6 C 92 16 149/75 H 94 07/07/17 19:37 07/07/17 20:02 07/07/17 19:37 07/07/17 20:02 07/07/17 19:37 Laboratory Results 07/06/17 04:25 07/06/17 04:25 07/06/17 07/07/17 07/08/17 05:59 05:59 05:59 Intake Total 420 0 736 Output Total 350 Balance 420 0 386 PT 13.0 SEC (12.0-15.0) 07/03/17 10:06 INR 0.96 (0.83-1.16) 07/03/17 10:06 ICD10 Worksheet Patient Problems: Problems Problem Status Onset Cystitis Acute SBO (small bowel obstruction) Acute Syncope Acute
[2017-07-08] MEDS: MULTIVITAMINS 1 EACH TAB PO SCH (07:39)
[2017-07-08] MEDS: VITAMIN B COMPLEX 1 EA CAP/TAB PO SCH (07:39)
[2017-07-08] MEDS: CHOLECALCIFEROL VIT D3 1,000 UNITS TAB PO SCH (07:40)
[2017-07-08] MEDS: FAMOTIDINE 20 MG TAB PO SCH (07:40)
[2017-07-08] MEDS: SENNOSIDES/DOCUSATE SODIUM TAB PO SCH (07:40)
[2017-07-08] MEDS: CARVEDILOL 6.25 MG TAB PO SCH (07:40)
[2017-07-08] MEDS: ASCORBIC ACID 500 MG TAB PO SCH (07:40)
[2017-07-08] MEDS: LISINOPRIL 40 MG TAB PO SCH (07:41)
[2017-07-08] MEDS: GALANTAMINE HBR 16 MG PO SCH (07:43)
[2017-07-08 08:33] VITALS: TEMP 97.9
[2017-07-08 12:02] VITALS: BP 119/59; PULSE 75; RESP 18; O2SAT 93
--- NOTE | 2017-07-08 12:09 | SOAPPROG ---
SOAP Progress Note Assessment/Plan: Assessment/Plan: 81 Y F s/p PTX and tube thoracostomy p pacemaker insertion. Chest tube removed last evening. CXR ok. Reviewed images with Dr. Bernard. Dispo: per admitting team. No CI to D/c from our standpoint. Can see in office later this week or next week with new CXR. alert, nad no wob 07/08/17 12:07 Objective: Vital Signs Temp Pulse Resp BP Pulse Ox 36.6 C 75 18 119/59 L 93 07/08/17 08:32 07/08/17 12:01 07/08/17 12:01 07/08/17 12:01 07/08/17 12:01 Laboratory Results 07/06/17 04:25 07/08/17 08:45 07/07/17 07/08/17 07/09/17 05:59 05:59 05:59 Intake Total 0 1086 Output Total 350 Balance 0 736 PT 13.0 SEC (12.0-15.0) 07/03/17 10:06 INR 0.96 (0.83-1.16) 07/03/17 10:06 ICD10 Worksheet Patient Problems: Problems Problem Status Onset Cystitis Acute SBO (small bowel obstruction) Acute Syncope Acute
--- NOTE | 2017-07-08 12:34 | ASMTCMCOM ---
CM Note CM Note Notes: CM met w/ pt and for dispo planning. PT is recommending 24hr supervision. OT is recommending home w/ HC. Pt and would like HC. Pt and did not have a preference for HC agencies as long as it is covered under [employer] insurance. Referrals sent out. [facility] is able to accept. [facility] will contact pt and directly to schedule care once medically stable to d/c. CM to follow. Plan: [facility], PT and OT Date Signed: 07/08/2017 12:34 PM Electronically Signed By:FAWN Hopkins
--- NOTE | 2017-07-08 14:28 | PDIAF ---
- Diagnosis Code Status: Full Code - Medication Management Discharge Medications: Medications to Continue on Transfer Herbals/Supplements -Info Only 1 ea PO DAILY 08/16/14 [Last Taken 03/24/16] Multivitamins [Multivitamin (*)] 1 each PO DAILY 08/16/14 [Last Taken 03/24/16] Rivaroxaban [Xarelto 15mg (*)] 15 mg PO HS 08/16/14 [Last Taken 03/24/16] Vitamin B Complex [B Complex] 1 each PO DAILY 08/16/14 [Last Taken 03/24/16] Acetaminophen [Tylenol ES 500 mg (*)] 500 mg PO Q6 PRN 08/17/14 [Last Taken 09/05] Cholecalciferol Vit D3 [Vitamin D3 (*)] 2,000 units PO DAILY 03/25/16 [Last Taken 03/24/16] Ascorbic Acid [Vitamin C 500 mg (*)] 500 mg PO DAILY 07/01/17 [Last Taken Unknown] Ranitidine HCl [Zantac] 150 mg PO BID 07/01/17 [Last Taken Unknown] Galantamine HBr [Galantamine ER] 16 mg PO DAILY 07/04/17 [Last Taken Unknown] Carvedilol [Coreg (*)] 6.25 mg PO BIDMEAL #60 tab 07/08/17 [Last Taken Unknown] Galantamine Hbr [Razadyne] 0 mg PO DAILY 07/08/17 [Last Taken Unknown] Lisinopril [Zestril 40 mg (*)] 40 mg PO DAILY #30 tab 07/08/17 [Last Taken Unknown] Discharge Medications: Refer to the Discharge Home Medication list for PRN reason. - Orders Services needed: Home Care, Physical Therapy, Occupational Therapy Home Care Face to Face: I certify that this patient was under my care and that I had the required [id number] encounter meeting the encounter requirements on the discharge day. My findings support the fact that the patient is homebound as defined in Home Care Face to Face Continued: CMS Chapter 7 Medicare Benefits Manual 30.1.1 , The condition of the patient is such that there exists a normal inability to leave home and consequently, leaving home would require a considerable and taxing effort. Diet Recommendation: cardiac -low fat low salt - Follow Up Care Current Providers and Referrals: Jamie Bernard MD [Medical Doctor] - (later this week or early next week. when you call to make an appt please tell the front line supervisor that you will need to have a chest xray before your visit and they will provide instruction.) Trish Rich MD [Primary Care Provider] - Feliciano Miller MD [Medical Doctor] - (Follow up for device and wound check on 07/10/2017 at 10:00 [facility] [place] Office Follow up with Dr Miller on July 15 at 10:30 a.m. at [facility] office)
--- NOTE | 2017-07-08 15:03 | ASDISCHSUM ---
Discharge Information Plan Status:Home with Home Health Medically Cleared to Leave:07/07/2017 Discharge Date:07/08/2017 02:39 PM D/C Disposition: ADT D/C Disposition:[id number] Projected Discharge Date:07/08/2017 11:00 AM Transportation at D/C: Discharge Delay Reason: Follow-Up Date:07/08/2017 11:00 AM Discharge Slot: Final Diagnosis: Placement Information Referral Type:*Home Health Care Services Referral ID:[id number] Provider Name:[facility] (formerly [facility]) Address 1:[address] Address 2: City:[place] Selection Factors: State:[place] Patient Contact Information Contact Name:MARCE Relationship: Address:[address] City:[place] Alternate Phone: State/Zip Code:[place] [address] Email: Financial Information Financial Class:Medicare Advantage Plans Primary Plan Desc:KIKI MEDICARE ADV Primary Plan Number:[id number] Secondary Plan Desc: Secondary Plan Number: Assessment Information [facility] Initial CM Assessment Living Arrangements What is your living Answers: With Spouse arrangement? Who do you live with? Type Of Residence What kind of residence do Answers: House you live in? Discharge Plan Comments Coordination Status Comments Notes: CM spoke w/ [facility] regarding d/c POC. Pt is a 81 y/o female admitted for pauses. Pt will most likely d/c independent when medically stable w/ supportive . OT has been ordered. CM available for d/c needs. Plan: Independent Date Signed: 07/04/2017 09:55 AM Electronically Signed By:FAWN Hopkins [facility] CM Progress Note CM Note CM Note Notes: CM met w/ pt and for dispo planning. PT is recommending 24hr supervision. OT is recommending home w/ HC. Pt and would like HC. Pt and did not have a preference for HC agencies as long as it is covered under [employer] insurance. Referrals sent out. [facility] is able to accept. [facility] will contact pt and directly to schedule care once medically stable to d/c. CM to follow. Plan: [facility], PT and OT Date Signed: 07/08/2017 12:34 PM Electronically Signed By:FAWN Hopkins Case Management Discharge Plan Note Case Management Discharge Discharge Order Complete? Answers: Yes Patient to Obtain Answers: via Family Medications Transportation Arranged Answers: Family/Friends EMTALA Complete Answers: No Case Management Transport Answers: No Form Complete Faxed Final Orders Answers: Yes Agency/Facility Transfer Answers: Yes Report Printed & Faxed to Receiving Agency Family Notified Answers: Yes Discharge Comments Notes: CM spoke w/ MITCHEL Lomeli and [facility] Buckner regarding d/c POC. Pt is being discharged w/ [facility]. [facility] was able to touch base w/ pt before she left. CM sent d/c orders to [facility]. CM available for changes. Plan: [facility], PT, OT, RN Date Signed: 07/08/2017 02:50 PM Electronically Signed By:FAWN Hopkins Intervention Information
--- NOTE | 2017-07-09 07:45 | GDS ---
[f rep st] DISCHARGE SUMMARY ADMISSION DIAGNOSES: 1. 7-second sinus arrest pause noted on LINQ monitor. 2. Paroxysmal atrial fibrillation. 3. Dyslipidemia. 4. Previous transient ischemic attack. 5. Mild carotid artery disease. 6. Hypertension. 7. Dementia. DISCHARGE DIAGNOSES: 1. Known sinus arrest for 7 seconds. 2. Status post permanent pacemaker implantation, St. Tien device with single St. Tien lead to right ventricle. 3. LINQ loop recorder removal 4. Left pneumothorax. 5. Status post chest tube implantation. 6. Paroxysmal atrial fibrillation. 7. Dyslipidemia. 8. Previous transient ischemic attack. 9. Mild carotid artery disease. 10. Hypertension. 11. Severe dementia. PROCEDURES PERFORMED DURING HOSPITALIZATION: 1. Electrocardiogram. 2. Single lead permanent pacemaker implantation, St. Tien device. 3. LINQ loop recorder removal. 4. Chest x-ray. 5. Chest tube implantation for left pneumothorax. CONSULTATIONS: 1. Marcus Tariq MD, Surgery. 2. Jamie Bernard MD, Surgery. BRIEF HISTORY: Please see H and P. The patient is an 81-year-old female, who is mildly demented. She has been having episodes of lightheadedness. She has had a previous loop recorder implantation done, noted that she had sinus arrest with 7-second pauses. It was discussed with the family about what would be the best management, with options of do nothing, continue with medical therapy, or permanent pacemaker implantation. After evaluation, the family decided for patient to undergo permanent pacemaker implantation. This was discussed with them by Dr. Miller. HOSPITAL COURSE: Patient was admitted July 03 to [facility], prepped for procedure and taken to the cardiac catheterization, where Dr. Miller successfully implanted a St. Tien pacemaker with a right ventricular lead. Apparently, no complications. Patient was transferred back to the [facility]. Initial chest x-ray showing no acute cardiopulmonary process. The patient remained stable overnight. On the , she remained in sinus rhythm with occasional ventricular paced beat. No malignant arrhythmias. 1-day postop pacer check showing device functioning within normal limits. Unfortunately, 1 day post chest x-ray showing a delayed pneumothorax of the left base. Dr. Tariq was consulted, evaluated the patient, and took her to the OR. There, he successfully inserted a left lateral chest tube. Over the following few days , patient was left with chest tube in for reexpansion of the lung. She remained stable. She had no significant arrhythmias on monitor. On the , Dr. Bernard, who works with Dr. Tariq, saw the patient, reviewed chest x-rays which appeared to be better, and chest tube was discontinued last evening around 7:30. The patient overnight remained asymptomatic of any shortness of breath. Again, her vital signs remained stable, no malignant arrhythmias, remained in sinus rhythm. Repeated chest x-ray done today demonstrated no residual pneumothorax following chest tube removal, improved left basilar atelectasis with a trace left pleural effusion. Per Surgery, patient was felt to be stable to go home. She denies any pain at this time. Cardiac monitoring continues to show sinus rhythm with occasional ventricular paced beat, no atrial fibrillation has been noted. PHYSICAL EXAMINATION ON DAY OF DISCHARGE: GENERAL APPEARANCE: Medium built, well-groomed female. She is only alert to person, not to time and place, but does re-orientate easily, very pleasant. CURRENT VITAL SIGNS: Blood pressure of 119/59, heart rate of 75, respirations 18, saturating 93% on room air. She has remained afebrile. HEENT: Head is normocephalic. Lips, tongue are pink and moist with no signs of cyanosis. Conjunctivae pink. NECK: Trachea is midline. No JVD, no auscultated bruits over carotids, +2 carotid pulses bilateral. RESPIRATORY: Lungs are clear to auscultation. No rhonchi, rales or wheezes. No accessory muscle use, no intercostal muscle retraction noted. CARDIAC: Regular rate, regular rhythm, S1, S2, no S3, S4, gallops, rubs or murmurs noted. ABDOMEN: Soft, nontender, bowel sounds x 4 quadrants. No organomegaly. No palpable masses. SKIN: Hortense, warm, dry, no cyanosis, no clubbing, no peripheral edema. VASCULAR: +2 carotids bilateral, +2 radials bilateral, +2 dorsal pedal and posterior tibial pulses bilateral. Pacemaker insertion site, left anterior chest, incision intact with Steri- Strips. No redness, swelling, drainage, ecchymosis, or hematoma. Dressing change done at this time. LINQ removal site, incision intact with raul. No redness, swelling, drainage , ecchymosis or hematoma. Dressing change done at this time. Left lateral chest, chest tube insertion site, dressing intact, no signs of infection. LABORATORY: Current laboratories: WBC drawn on July 06 showed WBC of 7.21 , hemoglobin of 13.5, hematocrit of 38.7, platelet count of 275. Labs today show sodium 139, potassium 3.9, chloride 101, BUN 14, creatinine 0.8, glucose 133, calcium 9.7. STUDIES: Permanent pacemaker, loop removal as mentioned above, chest x-rays as mentioned above, chest tube insertion as mentioned above. Electrocardiogram done on July 04, 2017, showing sinus rhythm with right bundle branch block, no significant ST or T-wave abnormalities. DISCHARGE DISPOSITION: Patient will be discharged home, home health care will be arranged for patient including PT, OT and physical therapy. ACTIVITY RESTRICTIONS: Patient is not to lift more than 10 pounds with the left arm for the next week, and not to lift the left arm higher than shoulder height for the next 6 weeks. DISCHARGE MEDICATIONS: Please see discharge medication reconciliation. Note, patient was hypertensive through hospitalization, and her home dose lisinopril has been increased to 40 mg p.o. daily. She has also been discontinued off metoprolol and placed on carvedilol at 6.25 mg p.o. twice daily. DISCHARGE INSTRUCTIONS: Post pacemaker implantation discharge instructions done , including monitoring for signs of infection, activity restrictions, medication compliance; patient does have a followup appointment for device and wound check this week. She will follow up with her primary psychiatric security nurse, Dr. Miller, next week. She will also follow up with Dr. Bernard in the next week, with a preceding chest x-ray. Note, patient will be restarted on her anticoagulation tonight, this was done after discussing with Юлия Coyne, PAM of Dr. Bernard' services, who has okayed this. At the time of discharge, patient's verbalizes understanding all instructions and has no questions or concerns. He has been told that if any problems or concerns post discharge, they are to notify our office or return to the hospital. Total time spent on discharge, greater than 30 minutes. /[id number]/MODL MTDD
[2017-07-09] MEDS ORDERED: FAMOTIDINE 20 MG TAB PO SCH (09:00)
== END 2017-07-08 14:39 | disposition home health service (06) | DRG 243 ==
LOC: FCATH 09:16 → F2W 13:48 → OBSVTOIN 07-04 14:10
PROVIDERS: ADMIT Internal Medicine Cardiovascular Disease; ATTEND Internal Medicine Cardiovascular Disease
DX: I45.5 Other specified heart block (principal); J94.8 Other specified pleural conditions; I48.0 Paroxysmal atrial fibrillation; F03.90 Unspecified dementia, unspecified severity, without behavioral disturbance, psychotic disturbance, mood disturbance, and anxiety; Z79.01 Long term (current) use of anticoagulants; I10 Essential (primary) hypertension; E78.5 Hyperlipidemia, unspecified; Z86.73 Personal history of transient ischemic attack (TIA), and cerebral infarction without residual deficits
CPT/HCPCS: 92523-GN; 97161-GP; 97165-GO; 97535-GO; C1786; C1898; G0378; G8978-GP-CH; G8979-GP-CH; G8980-GP-CH; G8987-GO-CJ; G8988-GO-CI; G8989-GO-CI; J0171; J0360; J0690; J2250; J2405; J2704; J3010; Q9967

== ENCOUNTER → 2017-07-14 | Outpatient (CLI) | payer OTHER | LOC: FIMAGING 09:53 | PROVIDERS: ATTEND Surgery | DX: J98.4 Other disorders of lung (principal) ==

== ENCOUNTER → 2017-07-17 | Outpatient (CLI) | payer OTHER | LOC: CIMAGING 14:05 | PROVIDERS: ATTEND Family Medicine | DX: Z12.31 Encounter for screening mammogram for malignant neoplasm of breast (principal) ==

== ENCOUNTER 2017-09-06 12:15 | Emergency (ER) | payer OTHER ==
--- NOTE | 2017-09-06 12:46 | EDPHY ---
H & P Time Seen by Provider: 09/06/17 12:42 HPI/ROS: CHIEF COMPLAINT: Dizziness, vomiting Limitations: Dementia, history is through the patient and her HISTORY OF PRESENT ILLNESS: 81-year-old female with a history of atrial fibrillation, on Xarelto presents after an episode of dizziness and vomiting. Just prior to arrival, she was driving in the car with her , when she had the onset of dizziness, like she might pass out. Her head slumped to the side and her speech became slow, but she did not pass out. She then had 1 episode of vomiting. The episode lasted approximately 5 min and then completely resolved. No slurring of speech, focal weakness or recent head trauma. She had a pacemaker placed in June 2017 for a sinus pause of 7 sec. During that admission, lisinopril was increased to 40 mg daily. Pacemaker interrogation 1 month ago was normal. She has a long history of intermittent dizziness, especially in the mornings and standing up from a seated position. REVIEW OF SYSTEMS: Constitutional: No fever, no chills Eyes: No visual changes ENT: No sore throat Respiratory: No cough, no shortness of breath Cardiac: No chest pain Gastrointestinal: no vomiting, no abdominal pain Genitourinary: No urinary frequency, no dysuria Musculoskeletal: No leg pain or swelling Skin: No rash Neurological: Mild headache, typical for her; no numbness, no weakness Psychiatric: No depression Past Medical/Surgical History: Atrial fibrillation, on Xarelto CAD, mild Hypertension TIA Pacemaker placement in June 2017 for sinus arrest Dementia Social History: Smoking Status: Never smoked Physical Exam: General Appearance: Alert, pleasant Eyes: Pupils equal and round, no conjunctival pallor or injection ENT, Mouth: Mucous membranes moist Neck: Normal inspection Respiratory: Lungs are clear to auscultation Cardiovascular: Regular rate and rhythm Gastrointestinal: Abdomen is soft and nontender Neurological: A&O, nonfocal exam Skin: Warm and dry Extremities: Nontender, no pedal edema Psychiatric: Mood and affect normal, poor memory Constitutional: Initial Vital Signs Temperature (C) 36.4 C 09/06/17 12:29 Heart Rate 53 L 09/06/17 12:29 Respiratory Rate 16 09/06/17 12:29 Blood Pressure 109/72 09/06/17 12:29 O2 Sat (%) 94 09/06/17 12:29 O2 Delivery Mode Room Air Allergies/Adverse Reactions: atorvastatin calcium [From Lipitor] Allergy (Severe, Verified 09/06/17 16:14) Other-Enter Comments simvastatin Allergy (Severe, Verified 09/06/17 16:14) Other-Enter Comments donepezil HCl [From Aricept] Allergy (Intermediate, Verified 09/06/17 16:14) Other-Enter Comments ezetimibe [From Zetia] Allergy (Intermediate, Verified 09/06/17 16:14) Other-Enter Comments memantine HCl [From Namenda] Allergy (Intermediate, Verified 09/06/17 16:14) Other-Enter Comments pregabalin [From Lyrica] Allergy (Intermediate, Verified 09/06/17 16:14) Other-Enter Comments propranolol Allergy (Intermediate, Verified 09/06/17 16:14) Hypotension scopolamine Allergy (Intermediate, Verified 09/06/17 16:14) Other-Enter Comments amoxicillin Allergy (Mild, Verified 09/06/17 16:14) Other-Enter Comments amitriptyline Allergy (Unknown, Verified 09/06/17 16:14) Unknown cephalexin monohydrate [From Keflex] Allergy (Unknown, Verified 09/06/17 16:13) Unknown clonidine Allergy (Unknown, Verified 09/06/17 16:13) Unknown hydrochlorothiazide [From Maxzide] Allergy (Unknown, Verified 09/06/17 16:13) Unknown hydrocodone [Hydrocodone] Allergy (Unknown, Verified 09/06/17 16:13) lidocaine [From Lidoderm] Allergy (Unknown, Verified 09/06/17 16:13) Unknown naproxen Allergy (Unknown, Verified 09/06/17 16:13) nifedipine Allergy (Unknown, Verified 09/06/17 16:13) Unknown nortriptyline Allergy (Unknown, Verified 09/06/17 16:13) Unknown propoxyphene napsylate [From Darvocet-N 100] Allergy (Unknown, Verified 16:13) Sulfa (Sulfonamide Antibiotics) Allergy (Unknown, Verified 09/06/17 16:13) tramadol HCl [From Ultram] Allergy (Unknown, Verified 09/06/17 16:13) Unknown triamterene [From Maxzide] Allergy (Unknown, Verified 09/06/17 16:13) Unknown codeine Allergy (Verified 09/06/17 16:13) Home Medications: Medication Instructions Recorded Herbals/Supplements -Info Only 1 ea PO DAILY 08/16/14 Multivitamins [Multivitamin (*)] 1 each PO DAILY 08/16/14 Rivaroxaban [Xarelto 15mg (*)] 15 mg PO HS 08/16/14 Vitamin B Complex [B Complex] 1 each PO DAILY 08/16/14 Acetaminophen [Tylenol ES 500 mg 500 mg PO Q6 PRN 08/17/14 (*)] Cholecalciferol Vit D3 [Vitamin D3 2,000 units PO DAILY 03/25/16 (*)] Ascorbic Acid [Vitamin C 500 mg 500 mg PO DAILY 07/01/17 (*)] Ranitidine HCl [Zantac] 150 mg PO BID 07/01/17 Galantamine HBr [Galantamine ER] 16 mg PO DAILY 07/04/17 Carvedilol [Coreg (*)] 6.25 mg PO BIDMEAL #60 tab 07/08/17 Galantamine Hbr [Razadyne] 0 mg PO DAILY 07/08/17 Lisinopril [Zestril 40 mg (*)] 40 mg PO DAILY #30 tab 07/08/17 Medical Decision Making - Diagnostics EKG Interpretation: EKG interpreted by me reveals normal sinus rhythm, rate 63, right bundle branch block. Interpretation: Abnormal EKG. No change from EKG 07/04/2017. ED Course/Re-evaluation: This patient presents after an episode of near syncope, now with blood pressure of 105/62. EKG reveals no evidence of ischemia or dysrhythmia. I suspect that she had an episode of hypotension, causing her symptoms. There is no evidence of CVA/TIA, given no focal findings, no aphasia and quite transient symptoms. [facility] contacted for pacemaker interrogation at 1245p. If pacemaker is functioning normally, and she remains asymptomatic, this pt can safely be discharged home. She has an appointment with Dr. Miller, cardiology, on Friday. Signed over to Dr. Ruiz at shift change. Differential Diagnosis: Differential diagnosis includes though is not limited to cardiac dysrhythmia, CVA, TIA, GI bleed, sepsis, hypoglycemia. - Data Points Laboratory Results: Laboratory Results 09/06/17 12:40 09/06/17 12:40 Medications Given: Discontinued Medications Sodium Chloride (Ns) 500 mls @ 1,000 mls/hr IV EDNOW ONE PRN Reason: Protocol Stop: 09/06/17 13:49 Last Admin: 09/06/17 13:36 Dose: 500 mls Departure - Departure Disposition: Home, Routine, Self-Care Clinical Impression: Near syncope Condition: Good Instructions: Near Syncope (ED) Additional Instructions: Check and record your blood pressure twice daily. Decrease Lisinopril to 20mg daily. Take your blood pressure before taking lisinopril in the morning. If your blood pressure is less than 120/80, do not take lisinopril. Call your doctor for further advice. Return for recurrent symptoms or any concerns. Referrals: Trish Rich MD [Primary Care Provider] - As per Instructions Feliciano Miller MD [Medical Doctor] - As per Instructions (Keep your appointment on Friday.)
[2017-09-06 12:47] LABS: PLATELET COUNT 338 10^3/uL (150-400)
--- NOTE | 2017-09-06 12:53 | CPEKG ---
Heart Rate: 63 RR Interval: 952 P-R Interval: 216 QRSD Interval: 132 QT Interval: 428 QTC Interval: 439 P [place]: 42 QRS [place]: -61 T Wave [place]: 14 EKG Severity - ABNORMAL ECG - EKG Impression: SINUS RHYTHM EKG Impression: RBBB AND LAFB Electronically Signed By: Chrystal Katz 06-Sep-2017 14:37:28
[2017-09-06 13:02] VITALS: RESP 16; TEMP 97.5
[2017-09-06] MEDS ORDERED: NS 500 ML IV ONE (13:20)
[2017-09-06 15:44] VITALS: BP 135/56; PULSE 61; O2SAT 95
== END 2017-09-06 16:07 | disposition home or self-care (01) ==
LOC: CED 12:15
DX: R55 Syncope and collapse (principal); E86.9 Volume depletion, unspecified; I10 Essential (primary) hypertension; I25.10 Atherosclerotic heart disease of native coronary artery without angina pectoris; Z79.01 Long term (current) use of anticoagulants; Z95.0 Presence of cardiac pacemaker
CPT/HCPCS: 80048-PO; 84484-PO; 85025-PO

== ENCOUNTER → 2018-07-31 | Outpatient (CLI) | payer OTHER | LOC: CIMAGING 08:32 | PROVIDERS: ATTEND Family Medicine | DX: Z12.31 Encounter for screening mammogram for malignant neoplasm of breast (principal) ==